=== PATIENT | female | born 1945 | race Caucasian/White ===

== ENCOUNTER 2022-10-29 11:07 | Emergency (ER) | payer MEDICARE ==
--- NOTE | 2022-10-29 11:19 | ERPHSYRPT ---
- History of Present Illness Time Seen by Provider: 10/29/22 11:19 Source: patient, family Exam Limitations: no limitations Physician History: This is a 77-year-old female who presents to the emergency department because of dizziness episode this morning as well as weakness over the last couple days. Patient denies chest pain and she denies shortness of breath. She had a single episode of dizziness this morning while at [facility]. The dizziness episode completely resolved prior to arrival but the weakness has persisted. Patient does have a history anxiety and hypertension. However she stopped her lisinopril. She was asked whether or not her physician is aware of her stopping this medication and she said no. In addition, she stated that she weaned hersel f off serotonin antagonist medication without her doctor's knowledge. Patient denies nausea vomiting and diarrhea symptoms. She does not have a headache. She has no visual changes. Her systolic blood pressure on arrival was approximately 195. The second systolic blood pressure reading was 174. Patient initially refused the IV placement. However she has now agreed. Timing/Duration: today Severity: moderate Character of Deficits: none Deficits: no difficulties Baseline/Normal Cognition: alert oriented x 3 Current Cognition: alert oriented x 3 Baseline Gait: walks w/o assistance Associated Symptoms: weakness, No fever, No chills, No slurred speech, No vision changes, No chest pain, No headache Allergies/Adverse Reactions: erythromycin base [From [facility].S.] Allergy (Verified 10/29/22 11:17) Home Medications: No Reportable Medications [No Reported Medications] 10/29/22 [History] Travel Risk - International Travel Have you traveled outside of the country in past 3 weeks: No - Coronavirus Screening Are you exhibiting any of the following symptoms?: No Close contact with a COVID-19 positive Pt in past 14-21 Days: No - Review of Systems Constitutional: Weakness Eyes: No Symptoms Ears, Nose, & Throat: No Symptoms Respiratory: No Symptoms Cardiac: No Symptoms Abdominal/Gastrointestinal: No Symptoms Genitourinary Symptoms: No Symptoms Musculoskeletal: No Symptoms Skin: No Symptoms Neurological: Dizziness (Resolved prior to arrival) Psychological: No Symptoms Endocrine: No Symptoms Hematologic/Lymphatic: No Symptoms Immunological/Allergic: No Symptoms All Other Systems: Reviewed and Negative - Past Medical History Cardiac History: Hypertension Psycho-Social History: Anxiety - Past Surgical History Past Surgical History: Yes Female Surgical History: Dilation & Curettage - Social History Drug Use: none - Nursing Vital Signs Nursing Vital Signs: Initial Vital Signs Temperature 98.2 F 10/29/22 11:18 Pulse Rate 112 H 10/29/22 11:18 Respiratory Rate 14 10/29/22 11:18 Blood Pressure 199/95 10/29/22 11:18 O2 Sat by Pulse Oximetry 99 10/29/22 11:18 Pain Scale Pain Intensity 0 - Cav[place] Coma Scale Best Eye Response (Cavour): (4) open spontaneously Best Verbal Response (Cavour): (5) oriented Best Motor Response (Janay): (6) obeys commands Janay Total: 15 - Physical Exam General Appearance: no apparent distress, alert, anxiety, thin Eye Exam: bilateral eye: normal inspection, PERRL, EOMI, abnormal EOM Ears, Nose, Throat Exam: normal ENT inspection, moist mucous membranes Neck Exam: normal inspection, non-tender, supple, full range of motion Respiratory: normal breath sounds, lungs clear, airway intact, No chest tenderness, No respiratory distress Cardiovascular: tachycardia Gastrointestinal: soft, normal bowel sounds, No tenderness Pelvic Exam: not done Rectal Exam: not done Back Exam: normal inspection, normal range of motion, No CVA tenderness, No vertebral tenderness Extremity Exam: normal inspection, normal range of motion, pelvis stable Mental Status: alert, oriented x 3, 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 Exam: normal hearing, normal speech, PERRL Coordination/Gait: normal finger to nose, normal gait, normal cerebellar function Motor/Sensory: no motor deficit, no sensory deficit, no pronator drift Skin Exam: normal color, warm, dry SpO2 Interpretation: normal SpO2: 99 O2 Delivery: Room Air - Course Nursing assessment & vital signs reviewed: Yes EKG Interpreted by Me: RATE, Sinus Tach, NORMAL AXIS, NORMAL INTERVALS, NORMAL QRS, NORMAL ST-T, Other (No evidence of acute ischemic changes on today's twelve-lead EKG.) Ordered Tests: Active Orders 24 hr Category Date Time Status EKG-ER Only STAT Care 10/29/22 11:19 Active IV Insertion STAT Care 10/29/22 11:19 Active HEAD WITHOUT CONTRAST [CT] Stat Exams 10/29/22 11:19 Completed CBC W DIFF Stat Lab 10/29/22 12:09 Completed CMP Stat Lab 10/29/22 12:09 Completed TROPONIN Q4H Lab 10/29/22 12:09 Completed TROPONIN Q4H Lab 10/29/22 15:30 Ordered TROPONIN Q4H Lab 10/29/22 19:30 Ordered TROPONIN Q4H Lab 10/29/22 23:30 Ordered UA W/RFX UR CULTURE Stat Lab 10/29/22 11:45 Completed Medication Summary Discontinued Medications Generic Name Dose Route Start Last Admin Trade Name Freq PRN Reason Stop Dose Admin Metoprolol Tartrate 5 mg 10/29/22 13:19 Metoprolol Tartrate 5 Mg/5 Ml Vial IV 10/29/22 13:20 STAT ONE Lab/Rad Data: Laboratory Result Diagrams 10/29/22 12:09 10/29/22 12:09 Laboratory Results 10/29/22 10/29/22 10/29/22 Range/Units 12:09 12:09 12:09 WBC 7.8 (4.0-10.5) x10^3/uL RBC 4.54 (4.1-5.4) x10^6/uL Hgb 13.1 (12.0-16.0) g/dL Hct 40.3 (35-47) % MCV 88.8 (78-100) fL MCH 28.9 (26-32) pg MCHC 32.5 (32-36) g/dL RDW 13.2 (11.5-14.0) % Plt Count 263 (150-450) x10^3/uL MPV 9.7 (7.5-11.0) fL Gran % 68.9 H (36.0-66.0) % Immature Gran % (Auto) 0.5 H (0.00-0.4) % Nucleat RBC Rel Count 0.0 (0.00-0.1) % Eos # (Auto) 0.21 (0-0.5) x10^3/uL Immature Gran # (Auto) 0.04 H (0.00-0.03) x10^3u/L Absolute Lymphs (auto) 1.47 (1.0-4.6) x10^3/uL Absolute Monos (auto) 0.64 (0.0-1.3) x10^3/uL Absolute Nucleated RBC 0.00 (0.00-0.01) x10^3u/L Lymphocytes % 18.9 L (24.0-44.0) % Monocytes % 8.2 (0.0-12.0) % Eosinophils % 2.7 (0.00-5.0) % Basophils % 0.8 (0.0-0.4) % Absolute Granulocytes 5.36 (1.4-6.9) x10^3/uL Basophils # 0.06 (0-0.4) x10^3/uL Sodium 139 (137-145) mmol/L Potassium 4.3 (3.5-5.1) mmol/L Chloride 100 (98-107) mmol/L Carbon Dioxide 29 (22-30) mmol/L Anion Gap 13.3 (5-15) MEQ/L BUN 17 (7-17) mg/dL Creatinine 0.64 (0.52-1.04) mg/dL Estimated GFR > 60.0 ML/MIN Glucose 93 (74-106) mg/dL Calcium 9.1 (8.4-10.2) mg/dL Total Bilirubin 0.40 (0.2-1.3) mg/dL AST 25 (14-36) U/L ALT 23 (0-35) U/L Alkaline Phosphatase 81 (38-126) U/L Troponin I < 0.012 (0.000-0.034) ng/mL Serum Total Protein 7.3 (6.3-8.2) g/dL Albumin 4.3 (3.5-5.0) g/dL Urine Color (Yellow) Urine Appearance (Clear) Urine pH (4.6-8.0) Ur Specific [place] (1.005-1.030) Urine Protein (Negative) Urine Glucose (UA) (Negative) mg/dL Urine Ketones (Negative) Urine Blood (Negative) Urine Nitrite (Negative) Urine Bilirubin (Negative) Urine Urobilinogen (0.2) mg/dL Ur Leukocyte Esterase (Negative) U Hyaline Cast (Auto) (0-2) /LPF Urine Microscopic RBC (0-5) /HPF Urine Microscopic WBC (0-5) /HPF Ur Epithelial Cells (None Seen) /HPF Urine Bacteria (None Seen) /HPF Urine Culture Reflexed (NO) 10/29/22 Range/Units 11:45 WBC (4.0-10.5) x10^3/uL RBC (4.1-5.4) x10^6/uL Hgb (12.0-16.0) g/dL Hct (35-47) % MCV (78-100) fL MCH (26-32) pg MCHC (32-36) g/dL RDW (11.5-14.0) % Plt Count (150-450) x10^3/uL MPV (7.5-11.0) fL Gran % (36.0-66.0) % Immature Gran % (Auto) (0.00-0.4) % Nucleat RBC Rel Count (0.00-0.1) % Eos # (Auto) (0-0.5) x10^3/uL Immature Gran # (Auto) (0.00-0.03) x10^3u/L Absolute Lymphs (auto) (1.0-4.6) x10^3/uL Absolute Monos (auto) (0.0-1.3) x10^3/uL Absolute Nucleated RBC (0.00-0.01) x10^3u/L Lymphocytes % (24.0-44.0) % Monocytes % (0.0-12.0) % Eosinophils % (0.00-5.0) % Basophils % (0.0-0.4) % Absolute Granulocytes (1.4-6.9) x10^3/uL Basophils # (0-0.4) x10^3/uL Sodium (137-145) mmol/L Potassium (3.5-5.1) mmol/L Chloride (98-107) mmol/L Carbon Dioxide (22-30) mmol/L Anion Gap (5-15) MEQ/L BUN (7-17) mg/dL Creatinine (0.52-1.04) mg/dL Estimated GFR ML/MIN Glucose (74-106) mg/dL Calcium (8.4-10.2) mg/dL Total Bilirubin (0.2-1.3) mg/dL AST (14-36) U/L ALT (0-35) U/L Alkaline Phosphatase (38-126) U/L Troponin I (0.000-0.034) ng/mL Serum Total Protein (6.3-8.2) g/dL Albumin (3.5-5.0) g/dL Urine Color Yellow (Yellow) Urine Appearance Clear (Clear) Urine pH 7.5 (4.6-8.0) Ur Specific Erie 1.010 (1.005-1.030) Urine Protein Negative (Negative) Urine Glucose (UA) Negative (Negative) mg/dL Urine Ketones Negative (Negative) Urine Blood Negative (Negative) Urine Nitrite Negative (Negative) Urine Bilirubin Negative (Negative) Urine Urobilinogen 0.2 (0.2) mg/dL Ur Leukocyte Esterase Negative (Negative) U Hyaline Cast (Auto) NONE SEEN (0-2) /LPF Urine Microscopic RBC 0-2 (0-5) /HPF Urine Microscopic WBC 0-2 (0-5) /HPF Ur Epithelial Cells None Seen (None Seen) /HPF Urine Bacteria None Seen (None Seen) /HPF Urine Culture Reflexed NO (NO) - Progress Progress: improved, re-examined Progress Note: 10/29/22 12:57 This patient's medical issue is 1 of moderate complexity. Level complexity in the work-up performed is based on review of the patient's history present illness, review the patient medication list, review the patient's drug allergy l ist, history of present illness and physical finds on examination. This patient work-up includes twelve-lead EKG, troponin level, urinalysis, CBC CMP, CT scan of the head without contrast. The CT scan of the head without contrast was interpreted by the radiologist and I reviewed the impression. 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 Otherwise this is a normal noncontrasted head CT. 10/29/22 13:28 Patient's symptoms have resolved. Counseled pt/family regarding: lab results, diagnosis, need for follow-up, rad results Medical Desision Making - Diagnostic Testing Diagnostic test were ordered, analyzed, and reviewed by me: Yes Radiological Interpretation: Reviewed by me, Teleradiologist Report - Risk of complications Low Risk: Low risk of morbidity from additional dx testing or treatment - Departure Departure Disposition: Home Clinical Impression: Dizziness, Hypertension Condition: Stable Critical Care Time: No Referrals: DOCTOR,NO FAMILY [Primary Care Provider] - Follow up/PCP as directed Additional Instructions: Drink plenty of fluids. Call your primary care provider today, 10/29/2022, to make an appointment in the next 3 days for further evaluation of blood pressure issues.
[2022-10-29 11:20] VITALS: TEMP 98.2
[2022-10-29 12:00] LABS: Appearance Clear (Clear); Bacteria None Seen /HPF (None Seen); Bilirubin Negative (Negative); Blood Negative (Negative); Epithelial Cells None Seen /HPF (None Seen); Glucose, Urine Negative (Negative); Hyaline Casts NONE SEEN /LPF (0-2); Ketones Negative (Negative); Leukocyte Esterase Negative (Negative); Nitrite Negative (Negative); Ph 7.5 (4.6-8.0); Protein,Urine Dip Negative (Negative); RBC 0-2 /HPF (0-5); Urobilinogen 0.2 mg/dL (0.2); WBC 0-2 /HPF (0-5)
[2022-10-29 12:01] LABS: ADD URINE CULTURE? NO (NO)
[2022-10-29 12:13] LABS: Absolute Neutrophil Ct (ANC) 5.36 x10^3/uL (1.4-6.9); BASOPHIL % 0.8 % (0.0-0.4); Basophil (Absolute #) 0.06 x10^3/uL (0-0.4); Eosinophil % 2.7 % (0.00-5.0); Eosinophil (Absolute #) 0.21 x10^3/uL (0-0.5); Hematocrit 40.3 % (35-47); Hemoglobin 13.1 g/dL (12.0-16.0); IMMATURE GRAN # 0.04 x10^3u/L (0.00-0.03); IMMATURE GRAN % 0.5 % (0.00-0.4); Lymphocyte (Absolute #) 1.47 x10^3/uL (1.0-4.6); Lymphocytes % 18.9 % (24.0-44.0); Mean Cell Volume 88.8 fL (78-100); Mean Corpuscular Hemoglobin 28.9 pg (26-32); Mean Corpuscular Hgb Concent. 32.5 g/dL (32-36); Mean Platelet Volume 9.7 fL (7.5-11.0); Monocyte (Absolute #) 0.64 x10^3/uL (0.0-1.3); Monocytes % 8.2 % (0.0-12.0); Neutrophil % 68.9 % (36.0-66.0); Platelet Count 263 x10^3/uL (150-450); Red Blood Count 4.54 x10^6/uL (4.1-5.4); Red Cell Distribution Width 13.2 % (11.5-14.0); White Blood Count 7.8 x10^3/uL (4.0-10.5)
--- NOTE | 2022-10-29 12:15 | XRAY ---
Indication: Lightheaded and dizzy. Multiple contiguous images obtained through the head without contrast. Comparison: None 5 mm remote lacunar infarct right external capsule. Otherwise normal appearing brain parenchyma, ventricles, and bony calvarium for patient's age. Visualized paranasal sinuses and mastoid air cells are clear. Impression: Remote lacunar infarct right external capsule. Otherwise normal CT head without contrast exam.
[2022-10-29 12:40] LABS: ALBUMIN 4.3 g/dL (3.5-5.0); ALKALINE PHOSPHATASE 81 U/L (38-126); ANION GAP 13.3 MEQ/L (5-15); BLOOD UREA NITROGEN 17 mg/dL (7-17); CHLORIDE 100 mmol/L (98-107); Calcium 9.1 mg/dL (8.4-10.2); Carbon Dioxide 29 mmol/L (22-30); Creatinine 1 0.64 mg/dL (0.52-1.04); EST GLOMERULAR FILTRATION RATE > 60.0 ML/MIN; Glucose 93 mg/dL (74-106); Potassium 4.3 mmol/L (3.5-5.1); SGOT/AST 25 U/L (14-36); SGPT/ALT 23 U/L (0-35); SODIUM 139 mmol/L (137-145); Total Protein 7.3 g/dL (6.3-8.2)
[2022-10-29] MEDS ORDERED: LOPRESSOR INJECTION IV ONE (13:19)
[2022-10-29 13:36] VITALS: BP 142/77; PULSE 97; RESP 18; O2SAT 97
== END 2022-10-29 13:43 | disposition home or self-care (01) ==
LOC: ED 11:07
DX: R42 Dizziness and giddiness (principal); I10 Essential (primary) hypertension; R53.1 Weakness
CPT/HCPCS: 36415; 70450; 80053; 81001; 84484; 85025; 93005; 99284

== ENCOUNTER 2023-06-15 06:44 | Day surgery (SDC) | payer MEDICARE ==
[2023-06-15] MEDS ORDERED: BETADINE 5% OPHTHALMIC 30 ML OP ONE (07:00)
[2023-06-15] MEDS ORDERED: NON-FORMULARY ITEM OP ONE (07:00)
[2023-06-15] MEDS ORDERED: cefUROXime sodium 0.005 GM in Sodium Chloride Flush 30 ML*** 0.5 ML IJ ONE (07:00)
[2023-06-15] MEDS ORDERED: Lactated Ringers 1,000 ML IV ONE (07:13)
[2023-06-15] MEDS: Lactated Ringers 1,000 ML IV SCH (07:16)
[2023-06-15] MEDS: TETRACAINE 0.5% STERI-UNIT SOL OP ONE ×2 (07:50→08:30)
[2023-06-15] MEDS: Ak-Dilate OPHTHALMIC*** 1.065 ML, TROPICAMIDE 1.065 ML, GATIFLOXACIN 0.5% OPHTH DROPS 0... OP ONE (07:56)
[2023-06-15] MEDS ORDERED: Epinephrine Preservative Free 1 MG/ML IJ ONE (09:00)
[2023-06-15] MEDS ORDERED: Zofran 4 MG/2 ML VIAL IV PRN (09:30)
[2023-06-15] MEDS ORDERED: DIPRIVAN 200 MG/20 ML IV ONE (09:57)
[2023-06-15 10:17] VITALS: RESP 16; TEMP 97.3
[2023-06-15] MEDS: ACETAZOLAMIDE 250 MG TABLET PO ONE (10:31)
[2023-06-15 10:36] VITALS: BP 124/80; PULSE 70; O2SAT 98
== END 2023-06-15 10:46 | disposition home or self-care (01) ==
LOC: SDC 06:44
PROVIDERS: ATTEND Ophthalmology
DX: H25.811 Combined forms of age-related cataract, right eye (principal); I10 Essential (primary) hypertension
CPT/HCPCS: 93005; 99100; J0171; J2704; A9270-GY

== ENCOUNTER 2023-07-04 09:19 | Emergency (ER) | payer MEDICARE ==
[2023-07-04 09:50] VITALS: BP 184/94; TEMP 98; O2SAT 100
--- NOTE | 2023-07-04 09:55 | ERPHSYRPT ---
- History of Present Illness Time Seen by Provider: 07/04/23 09:50 Source: patient Exam Limitations: no limitations Patient Subjective Stated Complaint: Woke up this morning and right eye red, swollen and itchy. Triage Nursing Assessment: Patient reports to ER with complaints of her right eye being swollen and itchy. Patient reports that she had cataract surgery on June [address] Betancur and that she has not had any complications. Patient has been using the prescribed eye drops prescribed by Dr. Betancur. Patient denies pain and visual difficulties. Upper and lower eyelids do appear swollen and red. No discharge noted from eye. Physician History: Woke up this morning and right eye red, swollen and itchy. Patient reports to ER with complaints of her right eye being swollen and itchy. Patient reports that she had cataract surgery on June [address] Betancur and that she has not had any complications. Patient has been using the prescribed eye drops prescribed by Dr. Betancur. Patient denies pain and visual difficulties. Upper and lower eyelids do appear swollen and red. No discharge noted from eye. Eye drops has ofloxacilin in it and Patient has erythromycin drug group allergies Timing/Duration: today Location: right eye Severity: mild Apparent Injury: no Associated Symptoms: itching, redness, eyelid swelling Visual Assistive Devices: None Chemical Exposure: No Trauma: No Welding Arc/Tanning Bed Exposure: No Allergies/Adverse Reactions: erythromycin base [From [facility].E.S.] Allergy (Mild, Verified 07/04/23 09:29) stomach ache floxacillin Adverse Reaction (Verified 07/04/23 09:40) Swelling of Eyelids Home Medications: Lisinopril 5 mg [Zestril 5 MG] 5 mg PO HS 05/28/23 [History] Rosuvastatin Calcium 10 mg PO HS 05/28/23 [History] clonazePAM [Clonazepam] 0.5 mg PO DAILY PRN 05/28/23 [History] Hx Tetanus, Diphtheria Vaccination/Date Given: No Hx Influenza Vaccination/Date Given: Yes Hx Pneumococcal Vaccination/Date Given: Yes Immunizations Up to Date: Yes Travel Risk - International Travel Have you traveled outside of the country in past 3 weeks: No - Emerging Infectious Disease Are you exhibiting symptoms associated with any current EIDs: No - Review of Systems Constitutional: No Symptoms Eyes: Itchy Ears, Nose, & Throat: No Symptoms Respiratory: No Symptoms Cardiac: No Symptoms Abdominal/Gastrointestinal: No Symptoms Genitourinary Symptoms: No Symptoms Musculoskeletal: No Symptoms Skin: No Symptoms Neurological: No Symptoms Psychological: No Symptoms - Past Medical History Pertinent Past Medical History: Yes Neurological History: No Pertinent History ENT History: No Pertinent History Cardiac History: High Cholesterol, Hypertension Respiratory History: No Pertinent History Endocrine Medical History: No Pertinent History Musculoskeletal History: No Pertinent History GI Medical History: No Pertinent History History: No Pertinent History Psycho-Social History: Anxiety Female Reproductive Disorders: No Pertinent History - Past Surgical History Past Surgical History: Yes Neuro Surgical History: No Pertinent History Cardiac: No Pertinent History Respiratory: No Pertinent History Gastrointestinal: No Pertinent History Genitourinary: No Pertinent History Musculoskeletal: No Pertinent History Female Surgical History: Dilation & Curettage - Social History Smoking Status: Never smoker Exposure to second hand smoke: No Drug Use: none Patient Lives Alone: No - Nursing Vital Signs Nursing Vital Signs: Initial Vital Signs Temperature 98.0 F 07/04/23 09:31 Pulse Rate 75 07/04/23 09:31 Respiratory Rate 17 07/04/23 09:31 Blood Pressure 184/94 07/04/23 09:31 O2 Sat by Pulse Oximetry 100 07/04/23 09:31 Pain Scale Pain Intensity 0 - Physical Exam General Appearance: no apparent distress Vision Acuity Degree Evaluation Phase: Corrected Vision Acuity Right Eye: 20/20 Eye Exam: right eye: eyelid inflammation (upper eyelid) Ears, Nose, Throat Exam: normal ENT inspection Neck Exam: normal inspection Respiratory Exam: normal breath sounds Cardiovascular Exam: regular rate/rhythm Gastrointestinal Exam: soft Neurologic: alert, oriented x 3, cooperative Skin Exam: normal color SpO2 Interpretation: normal SpO2: 100 O2 Delivery: Room Air - Course Nursing assessment & vital signs reviewed: Yes Ordered Tests: Medication Summary Discontinued Medications Generic Name Dose Route Start Last Admin Trade Name Freq PRN Reason Stop Dose Admin Diphenhydramine HCl 25 mg 07/04/23 09:42 Diphenhydramine Hcl 50 Mg/Ml Vial IM 07/04/23 09:43 STAT ONE - Progress Progress: improved Counseled pt/family regarding: diagnosis, need for follow-up Medical Desision Making - Diagnostic Testing Diagnostic test were ordered, analyzed, and reviewed by me: No - Departure Departure Disposition: Home Clinical Impression: Allergic blepharitis Qualifiers: Laterality: right Eyelid: upper Qualified Code(s): H01.111 - Allergic dermatitis of right upper eyelid Condition: Stable Critical Care Time: No Referrals: REFUGIO JONES MD [Primary Care Provider] - Follow up/PCP as directed Instructions: Allergic Reaction ED, Adverse Drug Reactions, Adult (DC) Additional Instructions: You have some type of allergic reaction to Mofloxacin. Stop Using eye drops for now. Call Dr Betancur office Tomorrow for further instruction Discharge/Care Plan NOEL FLORENCE was seen on 07/04/23 in the Emergency Room. The patient was counseled regarding Diagnosis,Lab results, Imaging studies, need for follow up and when to return to the Emergency Room. Prescriptions given: Discharge Note I have spoken with the patient and/or caregivers. I have explained the patient's condition, diagnosis and treatment plan based on the information available to me at this time. I have answered the patient's and/or caregiver's questions and addressed any concerns. The patient and/or caregivers have as good understanding of the patient's diagnosis, condition and treatment plan as can be expected at this point. The vital signs have been stable. The patient's condition is stable and appropriate for discharge from the emergency department. The patient will pursue further outpatient evaluation with the primary care physician or other designated or consulting physician as outlined in the discharge instructions. The patient and/or caregivers are agreeable to this plan of care and follow-up instructions have been explained in detail. The patient and/or caregivers have received these instruction. The patient/and or caregivers are aware that any significant change in condition or worsening of symptoms should prompt an immediate return to this or the closest emergency department or call 911. NOEL FLORENCE was seen on 07/04/23 n the Emergency Room. At that time you were treated for an emergent condition, during your visit Laboratory, Radiology and/or other procedures may have been ordered. It is very important that you follow-up with your Primary Care Physician REFUGIO JONES within the next 24-48 hours to review your Emergency Room visit and the final results of testing that was ordered. Some test results such as Urine Cultures, Blood Cultures, and other cultures if ordered will not be finalized for 24-48 hours. If you do not have a Primary Care Provider please call the medical records department at [phone] ext [phone] to obtain a copy of your results or you may sign into our patient portal to obtain these results by visiting us @ [email or web address] and completing the following steps: 1. Click on the Patient Portal link 2. Click the Patient Self Enrollment Link to complete the enrollment form and entering your 3. Once the enrollment form is completed you will receive an email with a temporary ID and password at the email address you provided. 4. Next choose a user name and password. Your user name must be at least 4 characters long and your password must be at least 4 characters long. 5. Choose a security question from the list and provide your answer to the question. If you already have signed into the Health Portal you may access your Health Care Information 21/09 by the following steps: 1. Login to our website @ [email or web address] 2. Enter your original user name and password. FAQS The [facility] Health Portal is an online tool that contains your Lab Results, Radiology Reports, Visit History, Discharge Instructions and Health Summary Lab and Radiology Results will not be available for 72 hours on the portal. The Portal is a secure site, passwords are encryted and URLs are re-written so they cannot be copied and pasted. You and authorized family members are the only ones who can access your Portal. Also there is a timeout feature that protects your information if you leave the Portal page open. If you have technical difficulty please use the Contact Us link on the page this will allow you to submit any questions you have regarding the Portal or you may contact the Medical Record Department at [phone] ext [phone].
[2023-07-04] MEDS ORDERED: BENADRYL 50 MG/ML ONE (09:59)
[2023-07-04] MEDS: BENADRYL 50 MG/ML IM ONE (10:12)
[2023-07-04 10:29] VITALS: PULSE 78; RESP 16
== END 2023-07-04 10:46 | disposition home or self-care (01) ==
LOC: ED 09:19
DX: H01.111 Allergic dermatitis of right upper eyelid (principal); E78.5 Hyperlipidemia, unspecified; I10 Essential (primary) hypertension; Z79.899 Other long term (current) drug therapy
CPT/HCPCS: 96372; 99282; J1200

== ENCOUNTER 2023-07-16 06:24 | Day surgery (SDC) | payer MEDICARE ==
[~2023-07-16 06:24] MED LIST: BETADINE 5% OPHTHALMIC 30 ML OP ONE; TOBRAMYCIN-DEXAMETH OPHTH SUSP OP SCH; cefUROXime sodium 0.005 GM in Sodium Chloride Flush 30 ML*** 0.5 ML IJ ONE
[2023-07-16] MEDS ORDERED: Lactated Ringers 1,000 ML IV ONE ×2 (06:51→11:03)
[2023-07-16] MEDS: Lactated Ringers 1,000 ML IV SCH (06:54)
[2023-07-16] MEDS: TETRACAINE 0.5% STERI-UNIT SOL OP ONE ×2 (07:17→07:46)
[2023-07-16] MEDS: Ak-Dilate OPHTHALMIC*** 1.065 ML, Cyclogyl 1% OPHTH SOL 1.065 ML, OCUFEN OPHTH*** 0.435 ML OP ONE (07:18)
[2023-07-16 07:34] LABS: ANION GAP 9.2 MEQ/L (5-15); Calcium 9.9 mg/dL (8.4-10.2); Creatinine 1 0.64 mg/dL (0.52-1.04); Potassium 4.3 mmol/L (3.5-5.1)
[2023-07-16] MEDS ORDERED: Zofran 4 MG/2 ML VIAL IV PRN (09:00)
[2023-07-16] MEDS ORDERED: Epinephrine Preservative Free 1 MG/ML IJ ONE (10:00)
[2023-07-16] MEDS ORDERED: DIPRIVAN 200 MG/20 ML IV ONE (11:03)
[2023-07-16 11:21] VITALS: TEMP 97
[2023-07-16] MEDS: ACETAZOLAMIDE 250 MG TABLET PO ONE (11:27)
[2023-07-16 11:31] VITALS: RESP 18
[2023-07-16 11:40] VITALS: BP 130/85; PULSE 74; O2SAT 98
== END 2023-07-16 11:49 | disposition home or self-care (01) ==
LOC: SDC 06:24
PROVIDERS: ATTEND Ophthalmology
DX: H25.812 Combined forms of age-related cataract, left eye (principal); I10 Essential (primary) hypertension
CPT/HCPCS: 36415; 80048; 93005; 99100; C1780; J0171; J2704; A9270-GY